=== PATIENT | male | born 1995 | race American Indian/Alaskan Native ===

== ENCOUNTER 2019-08-29 22:12 | Emergency (ER) | payer BC ==
[2019-08-29 22:19] VITALS: BP 124/76
[2019-08-29] MEDS ORDERED: diphenhydrAMINE 50 MG/ML VIAL IM ONE (22:59)
--- NOTE | 2019-08-30 00:10 | Emergency Department Report ---
HPI - General Chief Complaint: Allergic Reaction Time Seen by Provider: 08/29/19 22:58 - HPI HPI: Patient is a 24-year-old gentleman with history of mental health issues who is presenting with jaw tightening. Patient states that he had his first in [place] shot 3 days ago and throughout the day he has been having pain in his jaw and inability to control his tongue. Patient is states that his jaw feels very tight. He also has had some slurred speech as well. He denies any arm or leg weakness ED Past Medical Hx - Past Medical History Previous Medical History?: Yes Hx Psychiatric Treatment: Yes (schizo) Hx Asthma: Yes (as child) - Surgical History Past Surgical History?: No - Social History Smoking Status: Never Smoker Substance Use Type: None - Medications Home Medications: Home Medications Medication Instructions Recorded Confirmed Last Taken Type Benztropine [Cogentin] 1 mg PO BID #14 tab 08/30/19 Unknown Rx ED Review of Systems ROS: Stated complaint: TONGUE SWELLING Other details as noted in HPI Physical Exam - Physical Exam Vital Signs: Vital Signs 08/29/19 22:18 Temperature 98.8 F Pulse Rate 114 H Respiratory 16 Rate Blood Pressure 124/76 O2 Sat by Pulse 96 Oximetry General: Patient is alert and oriented x3 no acute distress. Does have some slight slurred speech secondary to his jaw being very tight lungs are clear to auscultation heart tones are normal abdomen soft nontender. ED Course Vital Signs 08/29/19 22:18 Temperature 98.8 F Pulse Rate 114 H Respiratory 16 Rate Blood Pressure 124/76 O2 Sat by Pulse 96 Oximetry - Reevaluation(s) Reevaluation #1: 08/30/19 00:11 Patient was given 50 of Benadryl IM. Patient was monitored in his symptoms did resolve. Patient will be discharged home. Critical care attestation.: If time is entered above; I have spent that time in minutes in the direct care of this critically ill patient, excluding procedure time. ED Disposition Clinical Impression: Extrapyramidal disorder, Dystonia Disposition: [id number] TO HOME OR SELFCARE Is pt being admited?: No Does the pt Need Aspirin: No Condition: Stable Prescriptions: Benztropine [Cogentin] 1 mg PO BID #14 tab Time of Disposition: 00:15
== END 2019-08-30 00:47 | disposition home or self-care (01) ==
LOC: ED 22:12
DX: G25.9 Extrapyramidal and movement disorder, unspecified (principal); G24.9 Dystonia, unspecified; F20.9 Schizophrenia, unspecified; J45.909 Unspecified asthma, uncomplicated; Z79.899 Other long term (current) drug therapy
CPT/HCPCS: 96372; 99282; J1200

== ENCOUNTER 2020-12-03 14:46 | Emergency (ER) | payer BC | END 2020-12-03 22:17 | LOC: ED 14:46 | DX: F20.9 Schizophrenia, unspecified (principal); Z53.21 Procedure and treatment not carried out due to patient leaving prior to being seen by health care provider ==